=== PATIENT | female | born 1985 | race American Indian/Alaskan Native ===

== ENCOUNTER 2017-11-22 23:23 | Emergency (ER) | payer SELFPAY ==
[2017-11-23] MEDS ORDERED: ZOFRAN ONE (00:13)
[2017-11-23 00:27] VITALS: BP 124/78
[2017-11-23] MEDS ORDERED: ZOFRAN IV ONE (00:29)
[2017-11-23] MEDS ORDERED: NACL 0.9% 1000 ML 1,000 ML IV ONE (00:38)
[2017-11-23 00:47] LABS: Mean Corpuscular HGB Conc 37 % (30-34); Mean Corpuscular Hemoglobin 35 pg (28-32); Mean Corpuscular Volume 95 fl (79-97); Platelet Count 216 K/mm3 (140-440); Red Blood Count 3.86 M/mm3 (3.65-5.03); Red Cell Distribution Width 12.3 % (13.2-15.2)
[2017-11-23 00:58] LABS: Hematocrit 36.5 % (30.3-42.9); Hemoglobin 13.4 gm/dl (10.1-14.3)
[2017-11-23 01:01] LABS: BUN/Creatinine Ratio 16; Blood Urea Nitrogen 13 mg/dL (7-17); Calcium 9.2 mg/dL (8.4-10.2); Hemolysis Index 10
--- NOTE | 2017-11-23 01:28 | XRay Report ---
FINAL REPORT EXAM: XR CHEST ROUTINE 2V HISTORY: Shortness of breath TECHNIQUE: PA and lateral views of the chest were submitted. FINDINGS: The heart size and vascularity appear normal. The lungs are clear. Pleural fluid is not seen. The skeletal structures do not show any acute changes. IMPRESSION: No acute cardiopulmonary process.
[2017-11-23 02:52] LABS: Basophils % (Manual) 0 % (0.0-1.8); Eosinophils % (Manual) 0 % (0.0-4.3); Platelet Estimate Consistent w Auto; Total Cells Counted 100
== END 2017-11-23 01:00 | disposition left against medical advice (07) ==
LOC: ED 23:23
DX: R06.02 Shortness of breath (principal); Z53.21 Procedure and treatment not carried out due to patient leaving prior to being seen by health care provider
CPT/HCPCS: 36415; 71046; 80048; 84484; 84703; 85007; 85025; 93005; 93010; J2405; J7030